=== PATIENT | male | born 1980 | race Asian ===

== ENCOUNTER 2020-08-11 12:54 | Emergency (ER) | payer MEDICAID ==
[~2020-08-11] VITALS: Ht 172.7 cm; Wt 79.5 kg
--- NOTE | 2020-08-11 13:43 | RAD ---
INDICATION: Reason: cough / Spl. Instructions: / History: COMPARISON: None. FINDINGS: Single view of chest obtained. Mild interstitial opacities bilaterally as well as groundglass component. Cardiac silhouette is mildly prominent but likely exaggerated by portable technique degenerative changes of the shoulders IMPRESSION: * Mild interstitial and groundglass opacities. Differential considerations would include mild edema or interstitial infiltrate. * Enlarged cardiac silhouette Electronically signed by: Haseeb Thao MD (08/11/2020 1:41 PM) [id number]
--- NOTE | 2020-08-11 14:26 | PHYS DOC ---
Past Medical History Past Medical History: Other Past Surgical History: No Surgical History Smoking Status: Never Smoker Alcohol Use: None General Adult EDM: Chief Complaint: SHORTNESS OF BREATH HPI: HPI: Patient is a 39 year old male with history of hemorrhoids who presents to the ED today complaining of chest tightness, chest pain, cough, shortness of breath, symptoms began in March and has been on and off since then. Patient denies any symptoms right now. He states he was evaluated at [facility] in March for exactly the same complaint, he states they walked him up and send him home. He states today he felt chest tightness and decided to come to the ED. Denies any fever. Review of Systems: Review of Systems: Constitutional: Denies fever or chills. [] Eyes: Denies change in visual acuity. [] HENT: Denies nasal congestion or sore throat. [] Respiratory: Reports cough and shortness of breath Cardiovascular: Reports chest pain, chest tightness GI: Denies abdominal pain, nausea, vomiting, bloody stools or diarrhea. [] : Denies dysuria. [] Musculoskeletal: Denies back pain or joint pain. [] Integument: Denies rash. [] Neurologic: Denies headache, focal weakness or sensory changes. [] Psychiatric: Denies depression or anxiety. [] Heart Score: HEART Score for Chest Pain: HEART Score for Chest Pain Response (Comments) Value History Slighlty/Non-Suspicious 0 ECG Normal 0 Age < 45 0 Risk Factors No Risk Factors 0 Total 0 Risk Factors: Risk Factors: DM, Current or recent (<one month) smoker, HTN, HLP, family history of CAD, obesity. Risk Scores: Score 0 - 3: 2.5% MACE over next 6 weeks - Discharge Home Score 4 - 6: 20.3% MACE over next 6 weeks - Admit for Clinical Observation Score 7 - 10: 72.7% MACE over next 6 weeks - Early Invasive Strategies Allergies: Allergies: Allergies Coded Allergies Type Severity Reaction Last Updated Verified No Known Drug Allergies 08/11/20 No Physical Exam: PE: Constitutional: Well developed, well nourished, no acute distress, non-toxic appearance. [] HENT: Normocephalic, atraumatic, bilateral external ears normal, oropharynx alon st, no oral exudates, nose normal. [] Eyes: PERRLA, EOMI, conjunctiva normal, no discharge. [] Neck: Normal range of motion, no tenderness, supple, no stridor. [] Cardiovascular:Heart rate regular rhythm, no murmur [] Lungs & Thorax: Bilateral breath sounds clear to auscultation [] Abdomen: Bowel sounds normal, soft, no tenderness, no masses, no pulsatile masses. [] Skin: Warm, dry, no erythema, no rash. [] Back: No tenderness, no CVA tenderness. [] Extremities: No tenderness, no cyanosis, no clubbing, ROM intact, no edema. [] Neurologic: Alert and oriented X 3, normal motor function, normal sensory function, no focal deficits noted. [] Psychologic: Affect normal, judgement normal, mood normal. [] Current Patient Data: Vital Signs: Vital Signs Date Time Temp Pulse Resp B/P (MAP) Pulse Ox O2 Delivery O2 Flow Rate FiO2 08/11/20 13:34 98.3 91 18 177/100 (125) 98 98.3 EKG: EK interpreted by Dr. Skylar ceja [facility] HR 76 no STEMI[] Radiology/Procedures: Radiology/Procedures: []PROCEDURE: CHEST AP ONLY INDICATION: Reason: cough / Spl. Instructions: / History: COMPARISON: None. FINDINGS: Single view of chest obtained. Mild interstitial opacities bilaterally as well as groundglass component. Cardiac silhouette is mildly prominent but likely exaggerated by portable technique degenerative changes of the shoulders IMPRESSION: * Mild interstitial and groundglass opacities. Differential considerations would include mild edema or interstitial infiltrate. * Enlarged cardiac silhouette Electronically signed by: Cleveland Thao MD (08/11/2020 1:41 PM) [id number] DICTATED and SIGNED BY: CLEVELAND THAO MD DATE: 08/11/20 [id number] 0 Course & Med Decision Making: Course & Med Decision Making Pertinent Labs and Imaging studies reviewed. (See chart for details) This is a 39-year-old male patient presenting to the ED today from home with multiple complaints that he has had since March including chest pain, shortness of breath, chest tightness. He arrives in the ED stating he has no chest pain. He states his chest tightness made him come to be evaluated. His O2 sats are 98% on room air. Blood pressure was at 177/100 but this was taken as patient was moving up in bed and not relaxed. He states he has no hx of HTN. We will retake the BP again. Chest x-ray interpreted by radiologist were noted for mild interstitial and groundglass opacities. Patient was tested for COVID-19. Was discharged on azithromycin and prednisone. Instructed to quarantine himself until he gets his final COVID-19 test from us. Provided return precautions. Follow-up with PCP next week Penny Disclaimer: Penny Disclaimer: This electronic medical record was generated, in whole or in part, using a voice recognition dictation system. Departure Departure Impression: Primary Impression: Person under investigation for COVID-19 Additional Impression: Bilateral interstitial pneumonia Disposition: DC HOME SELF CARE/HOMELESS Condition: STABLE Patient Instructions: Pneumonia, Adult Additional Instructions: You were evaluated in the emergency room, your chest x-ray was suspicious for COVID-19 pneumonia. We will put you on antibiotics, take them as prescribed as well as the prednisone. You were tested for COVID-19, we will call you in the course of this week or next week with the results. Please quarantine yourself until you hear from us. Take the prescribed medications as ordered. Come back to the ED at any point symptoms worsen Scripts Azithromycin (AZITHROMYCIN TABLET) 250 Mg Tablet 1 PKG PO UD for 5 Days, #6 TAB 0 Refills 2 the first day followed by 1 for days 2-5 Prov: DAGOBERTO ABRAHAM APRN 08/11/20 Prednisone (PREDNISONE) 50 Mg Tablet 1 TAB PO DAILY, #5 TAB Prov: DAGOBERTO ABRAAHM APRN 08/11/20 DAGOBERTO ABRAHAM APRN Aug 11, 2020 14:26
[2020-08-11] MEDS ORDERED: PRED50TA PO (14:34)
[2020-08-11] MEDS ORDERED: AZIT250T6 PO (14:34)
[2020-08-11 14:40] VITALS: BP 143/90
--- NOTE | 2020-08-13 12:47 | NUR ---
IP: Attempted to contact pt with COVID results. No answer. Left a voicemail to return the call.
== END 2020-08-11 14:40 | disposition home or self-care (01) ==
LOC: ER 12:54
DX: J84.9 Interstitial pulmonary disease, unspecified (principal); Z20.828 Contact with and (suspected) exposure to other viral communicable diseases
CPT/HCPCS: 71045; 99285; C9803; U0003